=== PATIENT | male | born 1970 | race Caucasian/White ===

== ENCOUNTER 2016-08-27 22:44 | Emergency (ER) | payer MEDICAID, OTHER ==
[~2016-08-27] VITALS: Ht 185.4 cm; Wt 104.5 kg
[2016-08-27] MEDS ORDERED: SODIUM CHLORIDE 0.9% 1,000ML IVBOLUS ONE (23:30)
[2016-08-27] MEDS ORDERED: ONDANSETRON 2MG/ML, 2ML IVPush ONE (23:30)
[2016-08-27] MEDS ORDERED: SODIUM CHLORIDE FLUSH 10ML SYR IVF ONE (23:30)
[2016-08-27] MEDS ORDERED: ONDANSETRON 2MG/ML, 2ML ONE (23:36)
[2016-08-27] MEDS ORDERED: HYDROmorphone 1 MG/ML, 1ML ONE (23:36)
[2016-08-27] MEDS: HYDROmorphone 1 MG/ML, 1ML IVPush PRN (23:39)
[2016-08-27] MEDS ORDERED: ACET325T14 PO (23:42)
[2016-08-28] MEDS ORDERED: HYDROmorphone 1 MG/ML, 1ML ONE (00:10)
[2016-08-28] MEDS: HYDROmorphone 1 MG/ML, 1ML IVPush PRN (00:12)
[2016-08-28 00:18] LABS: ASPARTATE AMINO TRANSFERASE 57 U/L (15-37); BLOOD UREA NITROGEN 11 mg/dL (7-18)
[2016-08-28] MEDS ORDERED: SODIUM CHLORIDE 0.9% 1,000ML IVBOLUS ONE (00:30)
[2016-08-28 00:31] LABS: ACETAMINOPHEN < 2 mcg/mL (10-30)
[2016-08-28 01:05] LABS: IS PT STATUS REG ER OR PRE ER? YES
[2016-08-28] MEDS ORDERED: OMNIPAQUE 350 MG/ML, 100ML BOTTLE ONE (01:06)
[2016-08-28] MEDS ORDERED: DIAZEPAM 5 MG/ML, 2ML IM STA (01:48)
[2016-08-28 02:09] VITALS: BP 168/118
== END 2016-08-28 02:47 | disposition home or self-care (01) ==
LOC: ED 23:59
DX: R10.32 Left lower quadrant pain (principal); R07.89 Other chest pain
CPT/HCPCS: 36415; 71010; 71275; 74177; 80053; 80307; 81003; 83690; 84484; 85025; 93005; 96361; 96372; 96374; 96375; 96376; 99285; J1170; J2405; J3360; J7030; Q9967